=== PATIENT | female | born 1955 | race Caucasian/White ===

== ENCOUNTER → 2024-03-01 11:59 | Outpatient (REF) | payer MEDICARE, OTHER, SELFPAY ==
[2024-03-01 13:40] LABS: Glucose 86 mg/dl (70-99); Uric Acid 4.7 mg/dl (2.5-6.2)
== END ==
LOC: REG 11:59
PROVIDERS: ATTENDING PHYSICIAN Internal Medicine
DX: M25.531 Pain in right wrist (principal); E16.2 Hypoglycemia, unspecified
CPT/HCPCS: 36415; 82947; 84550

== ENCOUNTER → 2024-03-06 15:49 | Outpatient (REF) | payer MEDICARE, OTHER, SELFPAY | LOC: RAD 15:49 | PROVIDERS: ATTENDING PHYSICIAN Family Medicine | DX: M25.531 Pain in right wrist (principal) | CPT/HCPCS: 73110 ==

== ENCOUNTER → 2024-04-30 12:15 | Outpatient (REF) | payer MEDICARE, OTHER, SELFPAY | LOC: WDC 12:15 | PROVIDERS: ATTENDING PHYSICIAN Obstetrics & Gynecology; FAMILY PHYSICIAN Family Medicine | DX: Z12.31 Encounter for screening mammogram for malignant neoplasm of breast (principal) | CPT/HCPCS: 77063; 77067 ==

== ENCOUNTER → 2024-09-21 08:55 | Outpatient (REF) | payer MEDICARE, OTHER, SELFPAY ==
[2024-09-21 12:04] LABS: % Basophils 0.7 % (0-2); % Eosinophils 3.2 % (0-6); % Immature Granulocytes 0.6 % (0-0.5); % Monocytes 7.8 % (1.7-9.3); % Neutrophils 56.7 % (42.2-75.2); Absolute Basophils 0.1 10^3/uL (0-0.2); Absolute Eosinophils 0.2 10^3/uL (0-0.7); Absolute Lymphocytes 2.1 10^3/uL (1.2-3.4); Absolute Monocytes 0.5 10^3/uL (0.1-0.6); Absolute Neutrophils 3.8 10^3/uL (1.4-6.5); Hemoglobin 13.2 g/dL (12.0-16.0); Mean Corp Hgb Conc. 32.2 g/dL (33.0-37.0); Mean Corpuscular Hgb 27.7 pg (27.0-31.0); Mean Platelet Volume 10.7 fL (7.4-10.4); Nucleated Red Blood Cells % 0 %; Platelet Count 235 10^3/uL (130-400); Red Blood Cell Count 4.77 10^6/uL (4.20-5.40); Red Cell Dist. Width 14.2 % (11.5-14.5); White Blood Cell Count 6.8 10^3/uL (4.8-10.8)
[2024-09-21 12:21] LABS: ALT (SGPT) 18 U/L (0-35); AST (SGOT) 30 U/L (14-36); Albumin 4.8 g/dl (3.5-5.0); Alkaline Phosphatase 85 U/L (38-126); Blood Urea Nitrogen 9 mg/dl (7-17); Calcium 9.6 mg/dl (8.4-10.2); Carbon Dioxide 27 mmol/L (22-30); Chloride 103 mmol/L (98-107); Glucose 87 mg/dl (70-99); HDL Cholesterol 86 mg/dl; LDL Cholesterol, Calculated 72 mg/dl; Potassium 4.4 mmol/L (3.5-5.1); Sodium 139 mmol/L (135-145); Total Bilirubin 0.9 mg/dl (0.2-1.3); Total Cholesterol 180 mg/dl (50-199); Total Protein 7.2 g/dl (6.3-8.2); Triglyceride 113 mg/dl (10-149); Very Low Density Lipoprotein 22 mg/dl (0-30); eGFR > 60.00
[2024-09-21 12:56] LABS: TSH Reflex To Free T4 3.52 uIU/ml (0.47-4.68)
[2024-09-21 15:20] LABS: Erythrocyte Sed Rate 8 mm/hour (0-20)
== END ==
LOC: RAD 08:55
PROVIDERS: ATTENDING PHYSICIAN Internal Medicine Gastroenterology; FAMILY PHYSICIAN Family Medicine
DX: R11.2 Nausea with vomiting, unspecified (principal); R19.7 Diarrhea, unspecified; Z79.899 Other long term (current) drug therapy
CPT/HCPCS: 36415; 74240; 76700; 80053; 80061; 82653; 82705; 83993; 84443; 85025; 85652; 86140; 87045; 87046; 87324; 87328; 87329; 87427; 87449; 89055

== ENCOUNTER → 2024-11-01 16:30 | Outpatient (REF) | payer MEDICARE, OTHER, SELFPAY | LOC: RAD 16:30 | PROVIDERS: ATTENDING PHYSICIAN Surgery; FAMILY PHYSICIAN Family Medicine | DX: K80.20 Calculus of gallbladder without cholecystitis without obstruction (principal); C16.9 Malignant neoplasm of stomach, unspecified | CPT/HCPCS: 74177; Q9967 ==

== ENCOUNTER 2024-11-15 06:08 | Day surgery (SDC) | payer MEDICARE, OTHER, SELFPAY ==
[2024-11-15 09:01] VITALS: BP 112/72
[2024-11-15 09:11] VITALS: BMI 26.4
[2024-11-15 09:12] VITALS: BMI 26.4
[2024-11-15 10:15] VITALS: BP 99/60
[2024-11-15 10:30] VITALS: BP 110/66
[2024-11-15 10:41] VITALS: BP 108/57
== END 2024-11-15 10:55 | disposition home or self-care (01) ==
LOC: SDS 06:08
PROVIDERS: ATTENDING PHYSICIAN Internal Medicine Gastroenterology
DX: R19.7 Diarrhea, unspecified (principal); R13.10 Dysphagia, unspecified; Z98.0 Intestinal bypass and anastomosis status
CPT/HCPCS: 45331; 43239; 88305

== ENCOUNTER → 2025-01-30 12:02 | Outpatient (REF) | payer MEDICARE, OTHER, SELFPAY ==
[2025-01-30 12:40] LABS: Hematocrit 38.2 % (37.0-47.0); Hemoglobin 12.6 g/dL (12.0-16.0); Mean Corpuscular Hgb 28.4 pg (27.0-31.0); Mean Corpuscular Volume 86.2 fL (81.0-99.0); Platelet Count 243 10^3/uL (130-400); Red Blood Cell Count 4.43 10^6/uL (4.20-5.40); Red Cell Dist. Width 14.6 % (11.5-14.5)
[2025-01-30 14:07] LABS: ALT (SGPT) 18 U/L (0-35); AST (SGOT) 23 U/L (14-36); Albumin 4.4 g/dl (3.5-5.0); Alkaline Phosphatase 70 U/L (38-126); Blood Urea Nitrogen 12 mg/dl (7-17); Calcium 9.2 mg/dl (8.4-10.2); Carbon Dioxide 29 mmol/L (22-30); Chloride 105 mmol/L (98-107); Glucose 81 mg/dl (70-99); Potassium 4.8 mmol/L (3.5-5.1); Sodium 142 mmol/L (135-145); Total Bilirubin 0.9 mg/dl (0.2-1.3); Total Protein 6.7 g/dl (6.3-8.2); eGFR > 60.00
== END ==
LOC: SDSPAT 12:02
PROVIDERS: ATTENDING PHYSICIAN Surgery; FAMILY PHYSICIAN Family Medicine
DX: Z01.818 Encounter for other preprocedural examination (principal)
CPT/HCPCS: 36415; 80053; 85027; 93005

== ENCOUNTER 2025-02-13 06:34 | Day surgery (SDC) | payer MEDICARE, OTHER, SELFPAY ==
[2025-01-30 13:32] VITALS: BMI 25.9
[2025-02-13] VITALS (9 sets, daily range): BP systolic 98–113; BP diastolic 52–72; BMI 25.9
[2025-02-13] MEDS: NORMOSOL-R/PLASMALYTE-A 1000 IV (10:36)
[2025-02-13] MEDS: TYLENOL 1000 MG PO (10:44)
== END 2025-02-13 14:59 | disposition home or self-care (01) ==
LOC: SDS 06:34
PROVIDERS: ATTENDING PHYSICIAN Surgery; FAMILY PHYSICIAN Family Medicine
DX: K80.10 Calculus of gallbladder with chronic cholecystitis without obstruction (principal)
CPT/HCPCS: 47563; 88304; 74300; 76000; A4300

== ENCOUNTER → 2025-05-01 12:43 | Outpatient (REF) | payer MEDICARE, OTHER, SELFPAY | LOC: WDC 12:43 | PROVIDERS: ATTENDING PHYSICIAN Obstetrics & Gynecology; FAMILY PHYSICIAN Family Medicine | DX: Z12.31 Encounter for screening mammogram for malignant neoplasm of breast (principal) | CPT/HCPCS: 77063; 77067 ==

== ENCOUNTER → 2025-05-10 08:27 | Outpatient (REF) | payer MEDICARE, OTHER, SELFPAY | LOC: RAD 08:27 | PROVIDERS: ATTENDING PHYSICIAN Internal Medicine Gastroenterology; FAMILY PHYSICIAN Family Medicine | DX: R93.5 Abnormal findings on diagnostic imaging of other abdominal regions, including retroperitoneum (principal) | CPT/HCPCS: 74246; 74248 ==